=== PATIENT | male | born 1985 | race Caucasian/White ===

== ENCOUNTER 2021-01-02 09:36 | Outpatient (REF) | payer BC, SELFPAY ==
[2021-01-02 11:35] LABS: Hematocrit 45.7 % (42-52); Hemoglobin 15.3 g/dl (14.0-18.0); Mean Corpuscular HGB Conc 33.5 g/dl (31.0-36.0); Mean Corpuscular Hemoglobin 29.1 pg (27.0-33.0); Mean Platelet Volume 11.7 fL (9.4-12.4); Platelet Count 185 X10*3/uL (160-400); Red Blood Count 5.25 X10*6/uL (4.60-5.80); Red Cell Distribution Width 12.6 % (11.0-16.0); White Blood Count 4.8 X10*3/uL (4.8-10.8)
[2021-01-02 11:57] LABS: Alanine Aminotransferase 26 U/L (0-40); Albumin Level 4.5 g/dL (3.5-5.0); Alkaline Phosphatase 53 U/L (39-117); Anion Gap 10 (12-20); Aspartate Amino Transferase 19 U/L (5-37); Bilirubin Total 1.1 mg/dL (0.0-1.0); Blood Urea Nitrogen 17 mg/dL (9-16); Calcium 9.5 mg/dL (8.4-10.2); Carbon Dioxide 32 mmol/L (22-29); Chloride 103 mmol/L (96-108); Cholesterol 176 mg/dL; Estimated Glomerular Filt Rate > 60; Glucose Fasting 87 mg/dL (60-99); HDL Cholesterol 40 mg/dL; LDL Cholesterol Calculated 120 mg/dl; Potassium 4.2 mmol/L (3.3-5.1); Rheumatoid Factor < 15.0 IU/mL (<15.0); Sodium 141 mmol/L (135-145); Total Protein 7.3 g/dL (6.5-8.0); Triglycerides 83 mg/dL
[2021-01-02 12:18] LABS: TSH reflex Free T4 1.05 uIU/mL (0.32-4.0)
[2021-01-02 12:49] LABS: Erythrocyte Sedimentation Rate 4 MM/HR (0-15)
[2021-01-03 13:11] LABS: Anti Nuclear Antibody Screen NEGATIVE (NEGATIVE)
== END 2021-01-02 09:37 | disposition home or self-care (01) ==
LOC: HO.HMGCLDS 09:36
PROVIDERS: PCP Internal Medicine; Visit Provider Physician Assistant
DX: M25.50 Pain in unspecified joint (principal); I10 Essential (primary) hypertension; Z13.1 Encounter for screening for diabetes mellitus; Z13.220 Encounter for screening for lipoid disorders; Z13.29 Encounter for screening for other suspected endocrine disorder
CPT/HCPCS: 36415; 80053; 80061; 84443; 85027; 85652; 86038; 86039; 86431

== ENCOUNTER 2022-09-16 06:40 | Emergency (ER) | payer BC, SELFPAY ==
--- NOTE | ~2022-09-16 | CT_ITS ---
EXAMINATION: CT ABDOMEN AND PELVIS WITH CONTRAST CLINICAL INFORMATION: Epigastric pain COMPARISON: None TECHNIQUE: Multidetector volumetric images were obtained from the superior aspect of the liver through the pubic symphysis following administration 85 mL of Omnipaque 350 intravenous contrast. Sagittal and coronal reformatted images were obtained on the technologist's workstation. Oral contrast: No This CT examination was performed using dose optimization techniques as appropriate, variously including the following: *Automated exposure control *Adjustment of mA and/or kV according to patient size (this includes techniques or standardized protocols for targeted exams where dose is matched to indication/reason for exam; i.e. extremities or head) *Use of iterative reconstruction technique DLP: 728 mGy-cm FINDINGS: LUNG BASES: The visualized lung bases are unremarkable. LIVER, GALLBLADDER, AND BILIARY TREE: Tiny likely cysts again seen posteriorly in segment 7 of the liver. No new suspicious or concerning liver lesions seen. The gallbladder is unremarkable with no evidence of radiopaque gallstones, gallbladder wall thickening, or obvious pericholecystic inflammatory changes. PANCREAS: Unremarkable. SPLEEN: Unremarkable. ADRENAL GLANDS: Unremarkable. KIDNEYS AND URETERS: The kidneys are normal in size, shape, and attenuation. No hydronephrosis, hydroureter, or calculi seen. No perinephric stranding. BLADDER: Unremarkable. GASTROINTESTINAL TRACT: The small and large bowel are unremarkable. The appendix is unremarkable. ABDOMINAL WALL: Tiny fat-containing umbilical hernia. LYMPH NODES: Normal. VASCULAR: Unremarkable. PELVIC VISCERA: Unremarkable. OSSEOUS STRUCTURES: Unremarkable. CT/CT abdomen pelvis w IV con IMPRESSION: No acute CT findings. Fleischner guidelines were followed.
--- NOTE | ~2022-09-16 | US_ITS ---
EXAMINATION: US ABDOMEN LIMITED CLINICAL INFORMATION: Right upper quadrant pain. COMPARISON: None TECHNIQUE: Real-time imaging of the right upper quadrant abdominal viscera. FINDINGS: PANCREAS: Normal. LIVER: Normal. The liver is normal in size. The liver contour is normal. Parenchymal echogenicity is normal. No focal hepatic lesion. There is no intrahepatic biliary duct dilatation seen. GALLBLADDER: Normal. The gallbladder is physiologically distended without evidence of stones, sludge, polyps, wall thickening or pericholecystic fluid. COMMON BILE DUCT: Normal in caliber measuring 0.4 cm in diameter. RIGHT KIDNEY: Normal. No hydronephrosis. No renal calculi or focal parenchymal lesions. The kidney measures 12.1 cm in maximum dimension. FREE FLUID: None. US/US abdomen limited IMPRESSION: 1. No ultrasound explanation for patient's pain symptoms. 2. No evidence of gallbladder disease or gallstones.
[2022-09-16 07:12] VITALS: BP 138/84; PULSE 60; RESP 19; TEMP 36.6; O2SAT 98; BMI 29.4
--- OUTSIDE RECORDS SUMMARY | 2022-09-16 08:08 | XMS_ITS | Continuity of Care Document ---
:1985 Author Organization [facility] Care Team Providers Name Role Phone [facility] Unavailable Unavailable Problems Combined list of problems from Department of Defense and Veterans Affairs facilities. It does not include entries that were removed or entered in error. Problem Status Onset Problem Type Date of Comments Source Date Resolution wrist sprain Inactive Condition DoD visit for: Active Condition DoD services physical separation Need For Inactive Condition DoD Prophylactic Measure common cold Active Condition WITH SLIGHT DoD LARYNGITIS. REASSURANCE. DISCUSSED EXPECTED COURSE OF DISEASE AND SYMPTOMATIC MEDS/TX'S. Patient Education - Active Condition DoD Medication Patient Counseling: Active Condition HANWASH ING DoD carter splint Inactive Condition left leg. DoD home exercises reviewed and prescribed. upper respiratory Inactive Condition possible DoD infection flu. will obtain nasal swab for viral cultures. visit for: Active Condition DoD services physical temporomandibular Active Condition Do D joint-pain dysfunction syndrome eustachian tube Active Condition POSSIBLE Do D dysfunction open wound fingers Active Condition S/P repa ir DoD left ring finger 3 Dec 05Sutur e removal accident caused by Active Condition D oD hand tools Allergies, Adverse Reactions, Alerts Combined list of allergies from Department of Defense and Veterans Affairs facilities. It does not include entries that were removed or entered in error. Substance Category Reaction Severity Reaction Status Date Comments S ource type Reported ANALGESIC( Drug Hypotension Drug active [facility] OPIOD) DRG allergy allergy 4 ton V [facility] CODEINE Propensity Low blood Propensity active OR [facility]TR[facility] to adverse pressure to adverse 4 W STRN reactions reactions [place] to drug to drug ETS [facility] (finding) (finding) CODEINE Drug Unknown Drug active [facility] {Cla } allergy allergy 5 l [facility] [place] Immunizations Combined list of available immunizations from the Department of Defense and Veterans Affairs facilities. Immunization Series Date Administered Site Reaction Lot CVX Drug St atus Comments Source Given By Number Code Artist'S Manager Influenza, 09/20/ KYLAH, () Not I nfluenza DoD injectable, 2016 Given , MDCK, injectabl preservative e, MDCK , free, preservat quadrivalent mile geeta e, quadrival ent FLU,3 YRS complet approx [facility] (HISTORICAL) 2014 ed d6t C [facility] FLU,3 YRS complet V A (HISTORICAL) 2012 ed C [facility] DTAP, complet [facility] UNSPECIFIED 2012 ed CN TRL FORMULATION [facility] influenza 0 [id number] MedImmune, complet influenza DoD virus 2010 Inc. (MED) ed virus vaccine, vaccine, live, live, attenuated, attenuat e for d, for intranasal intranasa use l use influenza 1 [id number] 111 MedImmune, complet influenza DoD virus 2009 Inc. (MED) ed virus vaccine, vaccine, live, live, attenuated, attenuat e for d, for intranasal intranasa use l use Novel 1 [id number] Novartis complet Novel DoD influenza-H1N 2009 1 Pharmaceutica ed influenza 1-, l Aashish. (NOV) -H1N1- , injectable injectabl e influenza 2 [id number] 111 Transcribed complet influenza DoD virus 2008 (TRS) ed virus vaccine, vaccine, live, live, attenuated, attenuat e for d, for intranasal intranasa use l use influenza 1 [id number] 111 MedImmune, complet influenza DoD virus 2007 Inc. (MED) ed virus vaccine, vaccine, live, live, attenuated, attenuat e for d, for intranasal intranasa use l use anthrax 4 10/16/ [id number] Emergent complet anthr ax DoD vaccine 2007 Bio[employer]ense ed vaccine Operations Rosemarie ([facility]) typhoid Vi 1 10/16/ [id number] 101 Sanofi complet typho id DoD capsular 2007 Pasteur ([facility]) ed Vi polysaccharid capsul ar e vaccine polysacch aride vaccine influenza 1 [id number] 111 MedImmune, complet influenza DoD virus 2006 Inc. (MED) ed virus vaccine, vaccine, live, live, attenuated, attenuat e for d, for intranasal intranasa use l use influenza 1 11/14/ [id number] 15 Sanofi complet infl uenza DoD virus 2006 Pasteur ([facility]) ed virus vaccine, vaccine, split virus split (incl. virus purified (incl. surface purified antigen)-reti surfac e red CODE antigen)- retired CODE anthrax 0 () complet anthrax D oD vaccine 2006 ed vaccine influenza 1 11/01/ [id number] 15 Sanofi complet infl uenza DoD virus 2004 Pasteur ([facility]) ed virus vaccine, vaccine, split virus split (incl. virus purified (incl. surface purified antigen)-reti surfac e red CODE antigen)- retired CODE influenza 0 12/18/ [id number] 111 MedImmune, complet influenza DoD virus 2004 Inc. ([facility]) ed virus vaccine, vaccine, live, live, attenuated, attenuat e for d, for intranasal intranasa use l use typhoid Vi 0 07/02/ [id number] 101 Sanofi complet typho id DoD capsular 2003 Pasteur ([facility]) ed Vi polysaccharid capsul ar e vaccine polysacch aride vaccine anthrax 3 06/04/ [id number] Emergent complet anthr ax DoD vaccine 2003 [employer] ed vaccine Operations [place] ([facility]) anthrax 2 03/05/ [id number] 24 Emergent complet anthr ax DoD vaccine 2003 Bio[employer] ed vaccine Operations Rosemarie ([facility]) anthrax 1 01/09/ [id number] 24 Emergent complet anthr ax DoD vaccine 2003 [employer] ed vaccine Operations [place] ([facility]) vaccinia 0 01/05/ [id number] [facility] complet vaccinia DoD (smallpox) 2003 ([facility]) ed (smallpox vaccine ) vaccine influenza 0 09/07/ [id number] 16 Sanofi complet infl uenza DoD virus 2002 Pasteur ([facility]) ed virus vaccine, vaccine, whole virus whole virus hepatitis B 3 02/01/ [id number] [facility], 2002 A2 (SKB) ed B adult dosage vaccine , adult dosage influenza 0 12/31/ [id number] 16 Sanofi complet infl uenza DoD virus 2002 Pasteur ([facility]) ed virus vaccine, vaccine, whole virus whole virus influenza 0 08/12/ [id number] 16 Sanofi complet influ regina DoD virus 2001 Pasteur ([facility]) ed virus vaccine, vaccine, whole virus whole virus hepatitis B 2 08/12/ [id number] 43 [facility] hepatitis DoD vaccine, 2001 A2 (SKB) ed B adult dosage vaccine , adult dosage tetanus and 0 07/01/ [id number] 09 Sanofi complet te tanus DoD diphtheria 2001 Pasteur ([facility]) ed a nd toxoids, diphtheri adsorbed, a preservative toxoids , free, for adsorbed, adult use (2 preserv at Lf of tetanus mile fr ee, toxoid and 2 for sal[place] lt Lf of use (2 Lf diphtheria of toxoid) tetanus toxoid and 2 Lf of diphtheri a toxoid) yellow fever 0 07/01/ [id number] 37 [facility] comple t yellow DoD vaccine 2001 (CON) ed fever vaccine hepatitis B 1 07/01/ [id number] 43 [facility] comple t hepatitis DoD vaccine, 2001 A2 (SKB) ed B adult dosage vaccine , adult dosage hepatitis A 2 07/01/ [id number] 52 Merck (MSD) complet hepatitis DoD vaccine, 2001 ed A adult dosage vaccine , adult dosage typhoid Vi 0 07/01/ [id number] 101 Sanofi complet typ hoid DoD capsular 2001 Pasteur ([facility]) ed Vi polysaccharid capsul ar e vaccine polysacch aride vaccine measles, 0 () Not measles, D oD mumps and 2001 Given mumps and rubella virus rubell a vaccine virus vaccine poliovirus 0 12/18/ [id number] 10 Sanofi complet polio viru DoD vaccine, 2001 Pasteur ([facility]) ed s inactivated vaccine, inactivat ed influenza 0 12/18/ [id number] 16 Merck (MSD) complet influenza DoD virus 2001 ed virus vaccine, vaccine, whole virus whole virus varicella 1 () Not varicella DoD virus vaccine 2001 Given virus vaccine meningococcal 0 12/18/ [id number] 32 Sanofi complet meningoco DoD polysaccharid 2001 Pasteur ([facility]) ed ccal e vaccine polysacch (MPSV4) aride vaccine (MPSV4) hepatitis A 1 12/18/ [id number] 52 Merck (MSD) complet hepatitis DoD vaccine, 2001 ed A adult dosage vaccine , adult dosage Encounters Combined list of: 1) Encounters from Department of Veterans Affairs facilities going back up to the last 18 months. 2) Encounters from the Department of Defense facilities going back up to 280 months. Location Location Encounter Encounter Reason Attending ADM DC Stat us Disposition Source Details Type Number For Provider Date Date Visit OUTPATIENT [id number] se WATERS, 01/03 An ed w/o Cruz PALACIOS /2004 Limitations O'Ca lla [facility]( [facility]) OUTPATIENT [id number] jaw/ear TORRENT, 05/16 Releas ed w/o Cruz pain WENDY R /[address] [facility]( Family Practic e Clinic- [facility] ) OUTPATIENT [id number] ht,wt,b HANY, 03/18 Release d w/o [facility] p MARQUITA S /2005 Limitations hl [facility] Element A-2) OUTPATIENT [id number] FEVER CARAGAN, 01/09 Release d w/o [facility] OF CHELI /2007 Limitations hl 105.2 R N [facility] OVER [facility] NIGHT & Element VERY A-2) SICK NO ER OUTPATIENT [id number] LT LEG CARAGAN, 07/16 Releas ed w/o [employer] PAIN CHELI /2007 Limitations hl R N [facility] Element A-2) OUTPATIENT [id number] PT HAS NASR, 10/14 Released w/o [employer] SORE UZIEL Limitations hl THROAT, [facility] Element STUFFY A-2) NOSE FOR 2 DAYS. [facility] TELE [phone] Member JUVENAL, 10/16 [facility] CONSULT is DONALD hl deployi [facility] malaria Element -endemi A-2) c country OUTPATIENT [id number] PHA NASR, 08/09 Released w /o [employer] UZIEL Limitations hl [facility] Element A-2) OUTPATIENT [id number] SEPERAT NASR, 09/05 Released w/o [employer] ION UZIEL Limitations hl PHYSICA [facility](ZZZ L [facility] Element A-2) OUTPATIENT [id number] 23y/o ZAVADOVSKY 10/16 Relea sed w/o [employer] M; Left , DARRYL V Limitations hl wrist [facility](LSL injury Emergen cy Room) OUTPATIENT [id number] GIOVANNA ALEX, 06/13 Releas ed w/o CHRIST Dee C /2016 Limitations Anto [place] [address]([place] Flt Med Team A) Procedures Combined list of: 1) Procedures from Department of Veterans Affairs facilities going back up to the last 18 months, not all VA non-surgical procedures are included; 2) All procedures from the Department of Defense facilities. Procedure Procedure Type Code Date Perfomer Comments Sourc e PSYCHOLOGICAL TESTING 12/23/2001 [facility] (INCLUDES PSYCHODIAGNOSTIC ASSESSMENT OF PERSONALITY PSYCHOPATHOLOGY, EMOTIONALITY, INTELLECTUAL ABILITIES, EG, WAIS-R, RORSCHACH, MMPI) WITH INTERPRETATION AND REPORT, PER HOUR SPLINT, PREFABRICATED, 10/16/2008 [facility] WRIST OR ANKLE VIS FUNCT 03/18/2006 [facility] SCREEN,AUTOMAT/SEMI-AUTO MAT BILAT QUANT DETERM VISUAL ACUITY,OCULAR ALIGN,COLOR VISION,PSEUDOISOCHROMAT PLATES,& FIELD VIS (MAY INC ALL/SOME SCRN DETERM FOR CONTRAST SENSITIV,VIS UND GLARE) POSTOPERATIVE FOLLOW-UP 01/03/2005 [facility] VISIT, NORMALLY INCLUDED IN THE SURGICAL PACKAGE, INDICATE THAT EVALUATION & MANAGEMENT SERVICE WAS PERFORMED DURING A POSTOPERATIVE PERIOD REASON RELATED ORIGINAL PROCEDURE SIMPLE REPAIR OF 12/20/2004 Do D SUPERFICIAL WOUNDS OF SCALP, NECK, AXILLAE, EXTERNAL GENITALIA, TRUNK AND/OR EXTREMITIES (INCLUDING HANDS AND FEET); 2.5 CM OR LESS REMOVAL IMPACTED CERUMEN 10/24/2003 [facility] REQUIRING INSTRUMENTATION, UNILATERAL MEDICAL NUTRITION 10/04/2003 D oD THERAPY; GROUP (2 OR MORE INDIVIDUAL(S)), EACH 30 MINUTES MEDICAL NUTRITION 09/20/2003 D oD THERAPY; GROUP (2 OR MORE INDIVIDUAL(S)), EACH 30 MINUTES INJECTION, KETOROLAC 07/31/2003 [facility] TROMETHAMINE, PER 15 MG ELECTROCARDIOGRAM, 06/22/2003 [facility] ROUTINE ECG WITH AT LEAST 12 LEADS; WITH INTERPRETATION AND REPORT INFUSION, NORMAL SALINE 06/14/2003 [facility] SOLUTION , 1000 CC Social History Combined list of available smoking, tobacco, and other social history from Department of Defense andVeterans Affairs facilities. Social History Type Response Date Comment Source Tobacco smoking status LIFETIME NON-TOBACCO 12/18/2015 [facility] USER History of tobacco use QUIT TOBACCO USE > 7 06/14/2014 10 yrs ago PERU YEARS AGO This section is an empty [facility] social history section.
--- NOTE | 2022-09-16 08:54 | ECG_ITS ---
Test Reason : EPIGASTRIC PAIN Blood Pressure : / mmHG Vent. Rate : 060 BPM Atrial Rate : 060 BPM P-R Int : 164 ms QRS Dur : 100 ms QT Int : 416 ms P-R-T Axes : 046 026 014 degrees QTc Int : 416 ms Normal sinus rhythm Incomplete right bundle branch block Abnormal ECG No previous ECGs available Referred By: Generic ED Physician Electronically Signed By:HARI JARA MD
--- NOTE | 2022-09-16 09:18 | ED.ABDPAIN ---
HPI - Abdominal Pain General Chief Complaint: Abdominal Pain Stated Complaint: severe abd pain Time Seen by Provider: 09/16/22 09:01 Source: patient Mode of arrival: ambulatory History of Present Illness HPI narrative: 37-year-old male without significant past medical history presents with increasing right upper quadrant/epigastric pain that comes and goes and is crampy in nature with associated nausea and vomiting as well as chills. Patient denies any shortness of breath, diarrhea or urinary symptoms. Related Data Previous Rx's Medication Instructions Recorded ondansetron 4 mg disintegrating 4 mg PO Q8H PRN nausea and 09/16/22 tablet vomiting #7 tabs Allergies Allergy/AdvReac Type Severity Reaction Status Date / Time codeine [CODEINE] Allergy Intermediate UNKNOWN Verified 01/07/22 10:13 Review of Systems Review of Systems Pertinent positives and negatives as stated in HPI 10 point review of systems is otherwise negative. PMFSH Past Medical History Source: nursing notes reviewed Surgical History History of adenoidectomy History of vasectomy Family History Family History Father No problems noted. Mother Diabetes CHF (congestive heart failure) Maternal Grandfather Cancer Colon cancer Social History Social History Housing: House Alcohol intake: current Alcohol intake frequency: holidays/special occasions only Patient Tobacco Use Status: Former Tobacco user Years Smoked: 2004 quit e-Cigarette/Vaping Use: Never Used Second Hand Smoke Exposure: No Advance Directives: No Advance Directives Information Provided: No Current occupational status: employed Current occupation: working full stack software developer [employer] [facility] Physical Exam ED Vital Signs: Vital Signs - 24 hr 09/16/22 07:12 Temperature 98 F Pulse Rate 60 Respiratory Rate 19 Blood Pressure 138/84 Pulse Oximetry 98 Oxygen Delivery Method Room Air BMI result Body Mass Index 29.4 VITAL SIGNS: Reviewed. GENERAL: Well developed, well nourished, in no acute distress. HEAD: Normocephalic/atraumatic EYES: PERRLA, EOMI EARS: Ext canals without abnormality OROPHARYNX: no oral lesions noted, posterior pharynx clear LUNGS: Normal breath sounds. No adventitious sounds or accessory muscle use. SpO2<98> CARDIOVASCULAR: Regular rate and rhythm without noted murmurs ABDOMEN: Soft, epigastric discomfort without rebound, Ruffin's negative, non-distended with bowel sounds. MUSCULOSKELETAL: No tenderness, deformities, or effusions noted on gross inspection. EXTREMITIES: No cyanosis, clubbing or edema. SKIN: Inspection of the skin reveals no rashes NEUROLOGIC: Alert and oriented x 4. Strength and sensation to light touch were grossly intact x 4. Course Course Course Narrative: 37-year-old male with history and clinical presentation and will rule out cholecystitis, pancreatitis but doubt pneumonia or cardiac etiology. Review of all investigations negative for any acute findings to better explain patient's history and presentation. Informed the patient it may have been a viral bug. If he continues to have similar symptoms he can follow-up with his primary care provider and discuss referral to see Gastroenterology. All results discussed with he and his at bedside. MDM - Abdominal Pain Lab Data Result diagrams: 09/16/22 09:28 09/16/22 09:28 Labs: Lab Results 09/16/22 09/16/22 09/16/22 Range/Units 09:28 09:28 09:28 WBC 5.1 (4.8-10.8) X10*3/uL RBC 5.37 (4.60-5.80) X10*6/uL Hgb 15.7 (14.0-18.0) g/dl Hct 46.0 (42.0-52.0) % MCV 85.7 (80.0-98.0) fL MCH 29.2 (27.0-33.0) pg MCHC 34.1 (31.0-36.0) g/dl RDW 12.2 (11.0-16.0) % Plt Count 176 (160-400) X10*3/uL MPV 10.7 (9.4-12.4) fL Immature Gran % (Auto) 0.2 (0.0-0.4) % Neut % (Auto) 63.7 (45-73) % Lymph % (Auto) 21.3 (20-40) % [place] % (Auto) 11.8 H (2-11) % Eos % (Auto) 2.6 (0-4) % Baso % (Auto) 0.4 (0-2) % Lymph # (Auto) 1.1 L (1.2-4.9) X10*3/uL [place] # (Auto) 0.6 (0.1-1.2) X10*3/uL Eos # (Auto) 0.1 (0.0-0.4) X10*3/uL Baso # (Auto) 0.0 (0.0-0.2) X10*3/uL Abs Immat Gran (auto) 0.01 (0.00-0.03) X10*3/uL Absolute Neuts (auto) 3.2 (2.0-8.3) x10*3/uL Absolute Nucleated RBC 0.000 (0.0-0.012) X10*3/uL Nucleated RBC % (auto) 0.0 (0.0-0.2) /100WBC Sodium 137 (135-145) mmol/L Potassium 4.4 (3.3-5.1) mmol/L Chloride 100 (96-108) mmol/L Carbon Dioxide 31 H (22-29) mmol/L Anion Gap 10 L (12-20) BUN 13 (9-16) mg/dL Creatinine 0.83 (0.5-1.4) mg/dL Estim Creat Clear Calc 136.8 Estimated GFR > 60 Random Glucose 96 (60-115) mg/dL Calcium 9.2 (8.4-10.2) mg/dL Total Bilirubin 0.6 (0.0-1.0) mg/dL AST 20 (5-37) U/L ALT 27 (0-40) U/L Alkaline Phosphatase 61 (39-117) U/L Troponin I High Sens < 3.5 (<3.5-35.0) ng/L Total Protein 7.0 (6.5-8.0) g/dL Albumin 4.3 (3.5-5.0) g/dL Lipase 9 (8-78) U/L Urine Color Urine Appearance Urine pH (5.0-9.0) Ur Specific [place] (1.005-1.025) Urine Protein (Neg-Trace) mg/dL Urine Glucose (UA) (Negative) mg/dL Urine Ketones (Negative) mg/dL Urine Blood (Negative) Urine Nitrite (Negative) Ur Leukocyte Esterase (Negative) COVID-19 ([facility]) (Negative) COVID-19 Clin Com 09/16/22 09/16/22 Range/Units 09:29 11:11 WBC (4.8-10.8) X10*3/uL RBC (4.60-5.80) X10*6/uL Hgb (14.0-18.0) g/dl Hct (42.0-52.0) % MCV (80.0-98.0) fL MCH (27.0-33.0) pg MCHC (31.0-36.0) g/dl RDW (11.0-16.0) % Plt Count (160-400) X10*3/uL MPV (9.4-12.4) fL Immature Gran % (Auto) (0.0-0.4) % Neut % (Auto) (45-73) % Lymph % (Auto) (20-40) % [place] % (Auto) (2-11) % Eos % (Auto) (0-4) % Baso % (Auto) (0-2) % Lymph # (Auto) (1.2-4.9) X10*3/uL [place] # (Auto) (0.1-1.2) X10*3/uL Eos # (Auto) (0.0-0.4) X10*3/uL Baso # (Auto) (0.0-0.2) X10*3/uL Abs Immat Gran (auto) (0.00-0.03) X10*3/uL Absolute Neuts (auto) (2.0-8.3) x10*3/uL Absolute Nucleated RBC (0.0-0.012) X10*3/uL Nucleated RBC % (auto) (0.0-0.2) /100WBC Sodium (135-145) mmol/L Potassium (3.3-5.1) mmol/L Chloride (96-108) mmol/L Carbon Dioxide (22-29) mmol/L Anion Gap (12-20) BUN (9-16) mg/dL Creatinine (0.5-1.4) mg/dL Estim Creat Clear Calc Estimated GFR Random Glucose (60-115) mg/dL Calcium (8.4-10.2) mg/dL Total Bilirubin (0.0-1.0) mg/dL AST (5-37) U/L ALT (0-40) U/L Alkaline Phosphatase (39-117) U/L Troponin I High Sens (<3.5-35.0) ng/L Total Protein (6.5-8.0) g/dL Albumin (3.5-5.0) g/dL Lipase (8-78) U/L Urine Color Yellow Urine Appearance Clear Urine pH 6.0 (5.0-9.0) Ur Specific [place] 1.025 (1.005-1.025) Urine Protein Negative (Neg-Trace) mg/dL Urine Glucose (UA) Negative (Negative) mg/dL Urine Ketones Negative (Negative) mg/dL Urine Blood Negative (Negative) Urine Nitrite Negative (Negative) Ur Leukocyte Esterase Negative (Negative) COVID-19 ([facility]) Negative (Negative) COVID-19 Clin Com See Note ECG Data Attestation: I personally reviewed and interpreted this ECG as follows: Prior ECG tracings: not available for review Interpretation: Full sinus rhythm, HR-60, no STEMI, PA/QRS/QTC are within normal limits. Discharge Plan Discharge Clinical Impression: Gastroenteritis Patient Disposition: Home, Self-Care Instructions: Gastroenteritis (ED) Additional Instructions: 1. Increase the amount of water that you are drinking. 2. Follow-up with your primary care provider in the next 1-2 days for re-evaluation and further outpatient management. Return to the ER for worsening symptoms. Prescriptions: New ondansetron 4 mg tablet,disintegrating 4 mg PO Q8H PRN (Reason: nausea and vomiting) Qty: 7 0RF Referrals: Po,Cody Del Castillo MD [Primary Care Provider] -
[2022-09-16 09:33] LABS: MANUAL DIFF FLAG NO
[2022-09-16 09:38] LABS: Basophils Percent Auto 0.4 % (0-2); Eosinophils Absolute Auto 0.1 X10*3/uL (0.0-0.4); Eosinophils Percent Auto 2.6 % (0-4); Hemoglobin 15.7 g/dl (14.0-18.0); Imm Gran Abs Auto 0.01 X10*3/uL (0.00-0.03); Imm Gran Pct Auto 0.2 % (0.0-0.4); Lymphocytes Absolute Auto 1.1 X10*3/uL (1.2-4.9); Lymphocytes Percent Auto 21.3 % (20-40); Mean Corpuscular HGB Conc 34.1 g/dl (31.0-36.0); Mean Corpuscular Hemoglobin 29.2 pg (27.0-33.0); Mean Corpuscular Volume 85.7 fL (80.0-98.0); Mean Platelet Volume 10.7 fL (9.4-12.4); Monocytes Absolute Auto 0.6 X10*3/uL (0.1-1.2); Monocytes Percent Auto 11.8 % (2-11); Neutrophils Absolute Auto 3.2 x10*3/uL (2.0-8.3); Neutrophils Percent Auto 63.7 % (45-73); Platelet Count 176 X10*3/uL (160-400); Red Blood Count 5.37 X10*6/uL (4.60-5.80); Red Cell Distribution Width 12.2 % (11.0-16.0); White Blood Count 5.1 X10*3/uL (4.8-10.8)
[2022-09-16 09:46] LABS: Appearance Urine Clear; Color Urine Yellow; Glucose Urine UA Negative (Negative); Leukocyte Esterase Urine Negative (Negative); Nitrite Urine Negative (Negative); Specific Gravity - Urine 1.025 (1.005-1.025); Urine Blood Negative (Negative); Urine Ketones Negative (Negative); Urine Protein Negative (Neg-Trace)
[2022-09-16 09:52] LABS: Alanine Aminotransferase 27 U/L (0-40); Albumin Level 4.3 g/dL (3.5-5.0); Alkaline Phosphatase 61 U/L (39-117); Anion Gap 10 (12-20); Aspartate Amino Transferase 20 U/L (5-37); Bilirubin Total 0.6 mg/dL (0.0-1.0); Blood Urea Nitrogen 13 mg/dL (9-16); Calcium 9.2 mg/dL (8.4-10.2); Carbon Dioxide 31 mmol/L (22-29); Chloride 100 mmol/L (96-108); Creatinine Clr Calc Pharmacy 136.8; Estimated Glomerular Filt Rate > 60; Glucose Random 96 mg/dL (60-115); Lipase 9 U/L (8-78); Potassium 4.4 mmol/L (3.3-5.1); Sodium 137 mmol/L (135-145)
[2022-09-16 09:58] LABS: Troponin-I High Sensitivity < 3.5 ng/L (<3.5-35.0)
[2022-09-16] MEDS: ondansetron HCL 4 MG/2 ML VIAL IVPUSH (10:30)
[2022-09-16] MEDS: 0.9 % Sodium Chloride 1,000 ML 999 ML IV (10:30)
[2022-09-16 11:36] LABS: COVID-19 Test Negative (Negative); IDNOW Serial# 9DB6401D
[2022-09-16] MEDS: iohexoL 350 MG/ML 100 ML INFUS..BTL IV (12:41)
== END 2022-09-16 14:15 | disposition home or self-care (01) ==
PROVIDERS: Emergency Provider Student in an Organized Health Care Education/Training Program; PCP Internal Medicine
DX: K52.9 Noninfective gastroenteritis and colitis, unspecified (principal); R10.11 Right upper quadrant pain; Z20.822 Contact with and (suspected) exposure to COVID-19; Z87.891 Personal history of nicotine dependence; Z79.899 Other long term (current) drug therapy
CPT/HCPCS: 36415; 74177; 76705; 80053; 81003; 83690; 84484; 85025; 87635; 93005; 96361; 96374; 99284; J2405; Q9967